=== PATIENT | female | born 1970 | race Caucasian/White ===

== ENCOUNTER 2023-11-28 13:53 | Observation (INO) | payer OTHER, SELFPAY ==
[2023-11-28] VITALS (8 sets, daily range): BP systolic 99–154; BP diastolic 47–71; PULSE 56–83; RESP 14–20; TEMP 36.5–37; O2SAT 93–97; BMI 31.1; BMI 30.6
--- NOTE | 2023-11-28 14:39 | PC.NURSE ---
MD Sung made aware of pt's hoarse voice, chest and throat tightness. At bedside to evaluate patient.
[2023-11-28] MEDS: Albuterol/Iprat 2.5/0.5MG 3 ML AMPUL.NEB INHALE (14:50)
[2023-11-28] MEDS: EPINEPHrine 1 MG/ML VIAL 0.3 MG IM (14:53)
[2023-11-28] MEDS: Famotidine/PF 20 MG/2 ML VIAL 40 MG IVPUSH (14:53)
[2023-11-28] MEDS: dexAMETHasone sod phosphate 10 MG/ML VIAL IVPUSH (14:53)
--- NOTE | 2023-11-28 15:10 | PC.NURSE ---
pt is alert and oriented, skin pwd, respirations even and unlabored, ls slightly wheezing on the lower bases with expirations, also slightly horse, sating well at 96% on room air, pt reports having an known egg allergy not sure if she ate something containing eggs,
--- NOTE | 2023-11-28 15:10 | ED_ITS ---
HPI - General Adult General Chief complaint: Allergic Reaction Stated complaint: ALLERGIC RXN Time Seen by Provider: 11/28/23 13:58 History of Present Illness ED Provider: Dr. Sung HPI narrative: 53 y/o F patient; PMH anaphylaxis allergic reaction; presents from [facility] with concern for anaphylaxis reaction to egg exposure. The patient states she felt her throat closing, her breathing becoming heavier, and she had NBNB vomiting x3. She states this is typical of her usual allergic reactions. She has never had to be intubated for anaphylaxis before. She received an epi-pen prior to arrival with some improvement. She also received IM Benadryl 50mg prior to arrival. She otherwise denies: fever or chills, chest pain, abdominal pain, syncope. Related Data Home Medications ?Medication ?Instructions ?Recorded ?Confirmed buspirone 30 mg tablet 30 mg PO BID 11/28/23 calcium carbonate 600 mg-vitamin 1 tab PO BID 11/28/23 D3 10 mcg (400 unit) tablet cholecalciferol (vitamin D3) 10 10 mcg PO BID 11/28/23 mcg (400 unit) tablet (Vitamin D3) cholecalciferol (vitamin D3) 10 20 mcg PO DAILY 11/28/23 mcg (400 unit) tablet (Vitamin D3) citalopram 40 mg tablet 40 mg PO DAILY 11/28/23 clonazepam 0.5 mg tablet 0.5 mg PO TID 11/28/23 clonidine HCl 0.1 mg tablet 0.1 mg PO TID 11/28/23 dicyclomine 10 mg capsule 10 mg PO TID 11/28/23 ibuprofen 600 mg tablet 600 mg PO TID 11/28/23 lamotrigine 200 mg tablet 200 mg PO DAILY 11/28/23 lamotrigine 25 mg tablet 50 mg PO BID 11/28/23 lurasidone 80 mg tablet 80 mg PO DAILY 11/28/23 oxycodone 15 mg tablet mg PO 11/28/23 quetiapine 50 mg tablet 50 mg PO BEDTIME 11/28/23 ramelteon 8 mg tablet (Rozerem) 8 mg PO DAILY 11/28/23 Allergies Allergy/AdvReac Type Severity Reaction Status Date / Time duloxetine [From Cymbalta] Allergy Rash Verified 11/28/23 14:38 egg Allergy Anaphylaxis Verified 11/28/23 14:38 haloperidol [From Haldol] Allergy Agitated Verified 11/28/23 14:38 Review of Systems 2 Review of Systems: Yes all other systems are reviewed and are negative [facility] Past Medical History Attestation statement: The following information was validated with the patient. Source: unable to obtain Social History Social History Advance Directives: No Advance Directives Information Provided: No Physical Exam ED Vital Signs: Vital Signs - 24 hr 11/28/23 14:36 11/28/23 14:50 11/28/23 14:53 Temperature 98.6 F Pulse Rate 62 62 58 Respiratory Rate 14 14 Blood Pressure 99/54 L 105/47 L Pulse Oximetry 96 Oxygen Delivery Method Room Air 11/28/23 15:56 Temperature 98.1 F Pulse Rate 69 Respiratory Rate 15 Blood Pressure 120/55 L Pulse Oximetry 97 Oxygen Delivery Method Room Air BMI result Body Mass Index 31.1 Patient is afebrile and hemodynamically stable. Const General: cooperative HENMT Other: Hoarse, raspy voice appreciated Head: Yes normal to inspection and Yes atraumatic Mouth: Normal oral and palatal mucosa present, lip normal and tongue normal Throat: Yes posterior oropharynx normal, Yes tonsils normal and Yes uvula midline Eyes General: appearance normal, both eyes and all related structures Pupils: Equal, round and reactive pupils present Neck Neck: Yes normal visual inspection, Yes full ROM, Yes supple and No tender Chest Chest palpation & inspection: normal inspection of the chest and normal palpation of entire chest wall Resp Other: Bibasilar rhonchi and wheezing present Effort & Inspection: normal respiratory effort, able to speak in complete sentences, no cough and no respiratory distress Cardio Rate: regular rate Rhythm: regular rhythm Peripheral pulses: Peripheral pulses 2+ throughout GI Inspection: Yes normal to inspection, No Abdominal wall edema and No distended Palpation (GI): Soft to palpation, not firm, nontender, no guarding and not rigid Auscultation: normal bowel sounds Back/Spine/Pelvis Back: No back tenderness Skin Other: No rash appreciated Neuro Cranial nerves: Yes Equal, round and reactive pupils present Course Course Course Narrative: Patient is afebrile and hemodynamically stable, SpO2 94%. Patient did have nausea/vomiting, throat discomfort, and shortness of breath prior to arrival consistent with anaphylaxis. She currently has low normal SpO2, a hoarse rasping voice, and wheezing/rhonchi on exam. Given these findings I will provide a second dose of epi-pen. The patient states her last anaphylaxis required three epi-pen doses before resolution. I will also treat with decadron 10mg IV, famotidine 40mg IV, and DuoNeb. Patient re-evaluated multiple times after this management plan with improvement in symptoms. SpO2 now 96 - 98%. Patient reports improvement in shortness of breath/throat tightness as well as nausea. No further vomiting in the emergency department. Patient will require admission to the hospital for observation after requiring two epi-pens for anaphylaxis. Provided afternoon doses of clonazepam, gabapentin, and oxycontin at patient's request. Verified in patient's record that these medications are prescribed to her. I spoke with the hospitalist who reports labs are require prior to admission for anaphylaxis. Ordered basic labs. Condition: Stable Medications Administered Discontinued Medications Generic Name Dose Route Start Last Admin Trade Name Freq PRN Reason Stop Dose Admin Albuterol/Ipratropium 3 ml 11/28/23 14:44 11/28/23 14:50 Albuterol/Iprat 2.5/0.5mg 3 Ml Ampul.Neb INHALE 11/28/23 14:45 3 ml ONCE ONE Administration Clonazepam 0.5 mg 11/28/23 15:37 11/28/23 16:12 Clonazepam 0.5 Mg Tablet PO 11/28/23 15:38 0.5 mg ONCE ONE Administration Dexamethasone Sodium Phosphate 10 mg 11/28/23 14:42 11/28/23 14:53 Dexamethasone Sod Phosphate 10 Mg/Ml Vial IVPUSH 11/28/23 14:43 10 mg ONCE ONE Administration Epinephrine 0.3 mg 11/28/23 14:42 11/28/23 14:53 Epinephrine 1 Mg/Ml Vial IM 11/28/23 14:43 0.3 mg STAT STA Administration Famotidine 40 mg 11/28/23 14:42 11/28/23 14:53 Famotidine/Pf 20 Mg/2 Ml Vial IVPUSH 11/28/23 14:43 40 mg ONCE ONE Administration Gabapentin 600 mg 11/28/23 15:37 11/28/23 16:12 Gabapentin 600 Mg Tablet PO 11/28/23 15:38 600 mg ONCE ONE Administration Oxycodone HCl 15 mg 11/28/23 15:37 11/28/23 16:12 Oxycodone Hcl Er 10 Mg Tab.Er.12h PO 11/28/23 15:38 15 mg ONCE ONE Administration Medical Decision Making Lab Data 11/28/23 16:02 11/28/23 16:02 Labs: Lab Results 11/28/23 Range/Units 16:02 WBC 9.6 (4.8-10.8) X10*3/uL RBC 4.49 (4.20-5.50) X10*6/uL Hgb 13.6 (12.0-16.0) g/dl Hct 40.9 (37.0-47.0) % MCV 91.1 (80.0-98.0) fL MCH 30.3 (27.0-33.0) pg MCHC 33.3 (31.0-35.0) g/dl RDW 12.7 (11.0-16.0) % Plt Count 199 (160-400) X10*3/uL MPV 9.9 (9.4-12.3) fL Immature Gran % (Auto) 0.3 (0.0-0.4) % Neut % (Auto) 61.4 (45-73) % Lymph % (Auto) 31.9 (20-40) % [place] % (Auto) 3.5 (2-11) % Eos % (Auto) 2.3 (0-4) % Baso % (Auto) 0.6 (0-2) % Lymph # (Auto) 3.1 (1.2-4.9) X10*3/uL [place] # (Auto) 0.3 (0.1-1.2) X10*3/uL Eos # (Auto) 0.2 (0.0-0.4) X10*3/uL Baso # (Auto) 0.1 (0.0-0.2) X10*3/uL Abs Immat Gran (auto) 0.03 (0.00-0.03) X10*3/uL Absolute Neuts (auto) 5.9 (2.0-8.3) x10*3/uL Absolute Nucleated RBC 0.000 (0.0-0.012) X10*3/uL Nucleated RBC % (auto) 0.0 (0.0-0.2) /100WBC Sodium 140 (135-145) mmol/L Potassium 4.3 (3.3-5.1) mmol/L Chloride 108 (96-108) mmol/L Carbon Dioxide 23 (22-29) mmol/L Anion Gap 13 (12-20) BUN 14 (9-16) mg/dL Creatinine 0.96 (0.5-1.4) mg/dL Estim Creat Clear Calc 59.4 Estimated GFR > 60 Random Glucose 130 H (60-115) mg/dL Calcium 9.8 (8.4-10.2) mg/dL Critical Care Time Critical Care Time Critical Care Time: Yes Total Critical Care Time: 35 Attestation: Total critical care time: Approximately?35minutes Due to a high probability of clinically significant, life threatening deterioration, the patient required my highest level of preparedness to intervene emergently and I personally spent this critical care time directly and personally managing the patient. This critical care time included obtaining a history; examining the patient; pulse oximetry; arranging urgent treatment with development of a management plan; evaluation of patient's response to treatment; frequent reassessment; and, discussions with other providers. This critical care time was performed to assess and manage the high probability of imminent, life-threatening deterioration that could result in multi-organ failure. It was exclusive of separately billable procedures and treating other patients? Discharge Plan Discharge Clinical Impression: Anaphylaxis Patient Disposition: Admitted As Inpatient Print Language: Ghanaian
--- NOTE | 2023-11-28 16:05 | PC.NURSE ---
pt is alert and oriented, pt is screaming at this rn to get her pain medications for her, then is insisting that the oxycodne is not the medications that she is supposed to take, that ioana salas made a mistake, insisted that the doctor come to the bedside, dr erickson arrived to the bed-speaking with the pt in regards to this. pt agreed that she will take this mediation for now and that Dr erickson will try to get records from [facility]. pt is sinus on the monitor pt is changed over in [facility] attire and sitter at bedside
[2023-11-28 16:07] LABS: MANUAL DIFF FLAG NO
[2023-11-28 16:09] LABS: Basophils Absolute Auto 0.1 X10*3/uL (0.0-0.2); Basophils Percent Auto 0.6 % (0-2); Eosinophils Absolute Auto 0.2 X10*3/uL (0.0-0.4); Eosinophils Percent Auto 2.3 % (0-4); Hematocrit 40.9 % (37.0-47.0); Hemoglobin 13.6 g/dl (12.0-16.0); Imm Gran Abs Auto 0.03 X10*3/uL (0.00-0.03); Imm Gran Pct Auto 0.3 % (0.0-0.4); Lymphocytes Absolute Auto 3.1 X10*3/uL (1.2-4.9); Lymphocytes Percent Auto 31.9 % (20-40); Mean Corpuscular HGB Conc 33.3 g/dl (31.0-35.0); Mean Corpuscular Hemoglobin 30.3 pg (27.0-33.0); Mean Corpuscular Volume 91.1 fL (80.0-98.0); Mean Platelet Volume 9.9 fL (9.4-12.3); Monocytes Absolute Auto 0.3 X10*3/uL (0.1-1.2); Monocytes Percent Auto 3.5 % (2-11); Neutrophils Absolute Auto 5.9 x10*3/uL (2.0-8.3); Neutrophils Percent Auto 61.4 % (45-73); Platelet Count 199 X10*3/uL (160-400); Red Blood Count 4.49 X10*6/uL (4.20-5.50); Red Cell Distribution Width 12.7 % (11.0-16.0); White Blood Count 9.6 X10*3/uL (4.8-10.8)
[2023-11-28] MEDS: oxyCODONE HCl ER 10 MG TAB.ER.12H 15 MG PO (16:12)
[2023-11-28] MEDS: Gabapentin 600 MG TABLET PO (16:12)
[2023-11-28] MEDS: clonazePAM 0.5 MG TABLET PO ×2 (16:12→21:03)
[2023-11-28 16:22] LABS: Anion Gap 13 (12-20); Blood Urea Nitrogen 14 mg/dL (9-16); Calcium 9.8 mg/dL (8.4-10.2); Carbon Dioxide 23 mmol/L (22-29); Chloride 108 mmol/L (96-108); Creatinine Clr Calc Pharmacy 59.4; Estimated Glomerular Filt Rate > 60; Glucose Random 130 mg/dL (60-115); Potassium 4.3 mmol/L (3.3-5.1); Sodium 140 mmol/L (135-145)
--- NOTE | 2023-11-28 17:13 | P.HPHOSP_ITS ---
History of Present Illness Date of Service: 11/28/23 Attending physician on admission: Sal [facility] Chief Complaint: Anaphylaxis Pt is a 53-year-old female with a PMH significant for?asthma, chronic pain syndrome on chronic oxycodone, and depression who presents to the ED from [facility] with?concern for anaphylaxis. Pt reports ate fish for lunch and approximally 20 minutes later began to feel her throat closing, tongue swelling, face becoming puffy, and was itchy. Stomach also began to hurt and she threw up 3 times. Patient states she has felt these symptoms many times in the past whenever she eats eggs, and believes the food she ate either contained eggs or was cross contaminated. Received 1 EpiPen dose at the facility and then IM Benadryl by EMS. Received an additional epinephrine dose in the ED. currently patient denies any nausea, vomiting, abdominal pain. Some pleuritic chest pain with deep inspiration, but no difficulty breathing or SOB. Reports occasional palpitations, but no chest pain or pressure. No difficulty swallowing or pruritus. Patient reports initially presented to [facility] ED for voluntary inpatient psychiatric admission for increasing depression and SI. However, when found out she was going to be going to [facility] she denied admission there and was sectioned. Reports she was set to be discharged from the facility on Tuesday instead of today due to the holiday. Currently adamantly denies any SI and wishes to be discharged home from the hospital here rather than going back to [facility]. In the ED pt was soft BP as low as 99/54, otherwise stable and WNL. Labs were grossly unremarkable baseline for patient. No leukocytosis. Stable H& H. No significant electrolyte abnormalities. Renal function baseline. Pt was treated with DuoNebs, famotidine, dexamethasone 10 mg IV, and epinephrine. Pt will be admitted to the hospital under observation for evaluation of likely anaphylactic reaction. Review of Systems 2 Review of Systems: Yes all other systems are reviewed and are negative [facility] Medical History (Updated 11/28/23 @ 18:08 by ECTOR Astudillo) Asthma MDD (major depressive disorder) Chronic pain Social History Comment: 1:1 sitter Patient Tobacco Use Status: Current everyday Tobacco user Tobacco use type: Cigarette Cigarettes Per Day: 7 Smoked in Last 30 Days: Yes Patient Interested in Nicotine Replacement: No Patient Given Instructions on How to Stop Smoking: No Second Hand Smoke Exposure: No Use of substances other than those prescribed or required for medical reasons: No Currently Displaying Signs/Symptoms of Drug Intoxication Withdrawal: No Advance Directives: No Advance Directives Information Provided: No Nutrition Risks: No Nutritional Risk Meds Allergies Allergy/AdvReac Type Severity Reaction Status Date / Time duloxetine [From Cymbalta] Allergy Rash Verified 11/28/23 14:38 egg Allergy Anaphylaxis Verified 11/28/23 14:38 haloperidol [From Haldol] Allergy Agitated Verified 11/28/23 14:38 Home Medications ?Medication ?Instructions ?Recorded ?Confirmed ?Last Taken ?Type acetaminophen 325 mg tablet 650 mg PO Q4H PRN pain/fever 11/28/23 11/28/23 Unknown History aluminum-mag hydroxide-simethicone 30 ml PO QID PRN Heartburn 11/28/23 11/28/23 Unknown History 200 mg-200 mg-20 mg/5 mL oral susp buspirone 30 mg tablet 30 mg PO BID 11/28/23 11/28/23 Unknown History calcium carbonate 500 mg PO Q4H PRN Heartburn 11/28/23 11/28/23 Unknown History citalopram 40 mg tablet 40 mg PO DAILY 11/28/23 11/28/23 Unknown History clonazepam 0.5 mg tablet 0.5 mg PO TID 11/28/23 11/28/23 Unknown History clonidine HCl 0.1 mg tablet 0.3 mg PO BID 11/28/23 11/28/23 Unknown History docusate sodium 100 mg capsule 100 mg PO BID PRN Constipation 11/28/23 11/28/23 Unknown History gabapentin 600 mg tablet 1,200 mg PO BID 11/28/23 11/28/23 Unknown History gabapentin 600 mg tablet 600 mg PO DAILY@1400 11/28/23 11/28/23 Unknown History lamotrigine 200 mg tablet 200 mg PO DAILY 11/28/23 11/28/23 Unknown History lamotrigine 25 mg tablet 50 mg PO DAILY 11/28/23 11/28/23 Unknown History lurasidone 80 mg tablet 80 mg PO DAILY@1700 11/28/23 11/28/23 Unknown History melatonin 3 mg tablet 3 mg PO BEDTIME PRN Sleep 11/28/23 11/28/23 Unknown History montelukast 10 mg tablet 10 mg PO DAILY 11/28/23 11/28/23 Unknown History oxycodone 15 mg tablet 15 mg PO DAILY@1400 11/28/23 11/28/23 Unknown History oxycodone 30 mg tablet 30 mg PO BID 11/28/23 11/28/23 Unknown History quetiapine 50 mg tablet 50 mg PO BEDTIME 11/28/23 11/28/23 Unknown History quetiapine 50 mg tablet 50 mg PO TID PRN Agitation 11/28/23 11/28/23 Unknown History ramelteon 8 mg tablet (Rozerem) 8 mg PO BEDTIME 11/28/23 11/28/23 Unknown History Physical Exam 2 Vital Signs and Narrative: Vital Signs: Last Vital Signs Temp 98.1 F 11/28/23 15:56 Pulse 69 11/28/23 15:56 Resp 15 11/28/23 15:56 BP 120/55 L 11/28/23 15:56 Pulse Ox 97 11/28/23 15:56 O2 Del Method Room Air 11/28/23 15:56 BMI result Body Mass Index 31.1 General: AOx3, no acute distress Resp: CTA bilaterally. Speaking in complete sentences. No respiratory distress. CVS: S1, S2, RRR GI: +BS, NT, no distention Skin: Warm, dry Neuro: Cranial nerves II-XII grossly intact bilaterally. Motor grossly intact bilaterally Extremities: No edema Psych: Emotionally labile Results Labs 11/28/23 16:02 11/28/23 16:02 Labs: Laboratory Results - last 24 hr 11/28/23 16:02 MCV 91.1 MCH 30.3 MCHC 33.3 RDW 12.7 Plt Count 199 MPV 9.9 Immature Gran % (Auto) 0.3 Neut % (Auto) 61.4 Lymph % (Auto) 31.9 [place] % (Auto) 3.5 Eos % (Auto) 2.3 Baso % (Auto) 0.6 Lymph # (Auto) 3.1 [place] # (Auto) 0.3 Eos # (Auto) 0.2 Baso # (Auto) 0.1 Abs Immat Gran (auto) 0.03 Absolute Neuts (auto) 5.9 Absolute Nucleated RBC 0.000 Nucleated RBC % (auto) 0.0 Anion Gap 13 Estim Creat Clear Calc 59.4 Estimated GFR > 60 Random Glucose 130 H Calcium 9.8 Assessment and Plan (1) Anaphylaxis: Status: Acute Plan Pt is a 53-year-old female with a PMH significant for?asthma, chronic pain syndrome on chronic oxycodone, and depression who presents to the ED from [facility] with?concern for anaphylaxis. Pt will be admitted to the hospital under observation for evaluation of likely anaphylactic reaction. Anaphylaxis Pt with throat tightness, swollen tongue, pruritus, puffy face, stomach upset, N/V Patient with known egg allergy w/anaphylaxis Likely ate food containing/contaminated with eggs at inpatient psych facility Given epinephrine x2 doses, Benadryl IV, DuoNebs, famotidine, dexamethasone Currently asymptomatic Monitor respiratory status Duonebs prn MDD with SI Section 12 at [facility] Has been inpatient at [facility], reports was set to be discharged on Tuesday Currently denies SI One-to-one sitter Care team once meidcally cleared Hold clonidine due to soft BP Continue all other home mood stabilizers Asthma Not in acute exacerbation Continue home inhalers Duonebs prn Chronic pain Continue home oxycodone Full Code Attending:?Dr. Holliday DVT Prophylaxis: Pt ambulatory Patient will be admitted to the hospital under observation for evaluation of anaphylactic response to egg allergy. Given patient needed multiple rounds of epinephrine for symptom resolution, patient will require overnight hospital stay for observation. Quality Stroke Does the patient have a stroke diagnosis?: No VTE Prior VTE?: No VTE Risk Level:: Medical - moderate - high VTE Device Contraindication: Treatment Not Indicated VTE Drug Contraindication: Treatment Not Indicated
--- NOTE | 2023-11-28 17:35 | PHA.MEDREC ---
Pharmacy Consult ? Medication Reconciliation Pharmacy has completed the medication reconciliation. Patient with list from [facility]
--- NOTE | 2023-11-28 19:23 | PC.NURSE ---
pt eating dinner at this time, report written for admission, awaiting transport. sitter at bedside. calm and cooperative with care at this time
[2023-11-28] MEDS: Lurasidone HCl 80 MG TABLET PO (19:44)
[2023-11-28] MEDS: busPIRone HCl 10 MG TABLET 30 MG PO (21:03)
[2023-11-28] MEDS: QUEtiapine Fumarate 50 MG TABLET PO (21:03)
[2023-11-28] MEDS: Gabapentin 600 MG TABLET 1200 MG PO (21:03)
[2023-11-28] MEDS: 0.9 % Sodium Chloride Flush 3 ML SYRINGE IVFLUSH (21:04)
[2023-11-28] MEDS: oxyCODONE HCl Immed Release 15 MG TABLET 30 MG PO (21:04)
[2023-11-28] MEDS: Acetaminophen 325 MG TABLET 650 MG PO (21:16)
[2023-11-29] MEDS: Acetaminophen 325 MG TABLET 650 MG PO (02:58)
[2023-11-29] MEDS: QUEtiapine Fumarate 50 MG TABLET PO (02:59)
[2023-11-29 03:32] VITALS: BP 148/75; PULSE 52; RESP 18; TEMP 36.2; O2SAT 96
[2023-11-29 04:02] VITALS: RESP 16
[2023-11-29 04:03] VITALS: RESP 16
[2023-11-29 07:18] VITALS: BP 135/71; PULSE 52; RESP 18; TEMP 36.5; O2SAT 96
[2023-11-29] MEDS: 0.9 % Sodium Chloride Flush 3 ML SYRINGE IVFLUSH (07:57)
[2023-11-29] MEDS: busPIRone HCl 10 MG TABLET 30 MG PO (07:57)
[2023-11-29] MEDS: oxyCODONE HCl Immed Release 15 MG TABLET 30 MG PO (07:58)
[2023-11-29] MEDS: Gabapentin 600 MG TABLET 1200 MG PO (07:58)
[2023-11-29] MEDS: lamoTRIgine 100 MG TABLET 200 MG PO (07:58)
[2023-11-29] MEDS: clonazePAM 0.5 MG TABLET PO (07:58)
[2023-11-29] MEDS: Montelukast Sodium 10 MG TABLET PO (07:58)
[2023-11-29] MEDS: lamoTRIgine 25 MG TABLET 50 MG PO (07:59)
[2023-11-29] MEDS: Escitalopram Oxalate 20 MG TABLET PO (07:59)
--- NOTE | 2023-11-29 10:59 | PM.DS ---
DS: Providers Provider Date of Service: 11/29/23 Date of admission: 11/28/23 17:53 Date of discharge: 11/29/23 Primary care physician: Alexander Garrido MD Consults: 11/28/23 17:55 Consult for Sitter Routine Reason for consultation: From [facility] for SI 11/29/23 08:28 Consult to Care Team Routine Comment: Reason for consultation: Medically ready for discharge DS: Diagnosis Discharge Diagnosis (1) Anaphylaxis: Status: Acute DS: Summary Hospital Course Hospital Course: Pt is a 53-year-old female with a PMH significant for?asthma, chronic pain syndrome on chronic oxycodone, and depression who presents to the ED from [facility] with?concern for anaphylaxis. Pt reports ate fish for lunch and approximally 20 minutes later began to feel her throat closing, tongue swelling, face becoming puffy, and was itchy. Stomach also began to hurt and she threw up 3 times. Patient states she has felt these symptoms many times in the past whenever she eats eggs, and believes the food she ate either contained eggs or was cross contaminated. Received 1 EpiPen dose at the facility and then IM Benadryl by EMS. Received an additional epinephrine dose in the ED. currently patient denies any nausea, vomiting, abdominal pain. Some pleuritic chest pain with deep inspiration, but no difficulty breathing or SOB. Reports occasional palpitations, but no chest pain or pressure. No difficulty swallowing or pruritus. Patient reports initially presented to [facility] ED for voluntary inpatient psychiatric admission for increasing depression and SI. However, when found out she was going to be going to [facility] she denied admission there and was sectioned. Reports she was set to be discharged from the facility on Tuesday instead of today due to the holiday. Currently adamantly denies any SI and wishes to be discharged home from the hospital here rather than going back to [facility]. In the ED pt was soft BP as low as 99/54, otherwise stable and WNL. Labs were grossly unremarkable baseline for patient. No leukocytosis. Stable H& H. No significant electrolyte abnormalities. Renal function baseline. Pt was treated with DuoNebs, famotidine, dexamethasone 10 mg IV, and epinephrine. Pt will be admitted to the hospital under observation for evaluation of likely anaphylactic reaction. hosptial course: The patient was at a psychiatric facility for depression management and was scheduled for discharge within a day. She developed an anaphylactic reaction, as noted above, and required two doses of Epipen in the ED. She has been stable since. She has a history of a severe egg allergy since childhood and usually avoids eating out. She believes the facility's diet was not egg-free, leading to her reaction, which has now resolved. She has Epipens at home. Regarding her depression, she denies suicidal ideation (SI), and the care team has cleared her for discharge with her supportive . Time Attestation Discharge Coordination Time (in mins): 35 Quality: Safe Use of Opioids Does Pt have an Active Cancer Diagnosis on the Problem List?: No Quality: Stroke Does the patient have a stroke diagnosis?: No Physical Exam Vital Signs: Vital Signs: Last Vital Signs Temp 97.7 F 11/29/23 07:18 Pulse 52 11/29/23 07:18 Resp 18 11/29/23 07:18 BP 135/71 11/29/23 07:18 Pulse Ox 96 11/29/23 07:18 O2 Del Method Room Air 11/29/23 07:18 BMI result Body Mass Index 30.6 Const: Other: General: AO X 3, no acute distress Resp: CTA bilateral CVS: S1,S2,RRR GI: +BS, NT, no distention Skin: No rash Neuro: motor grossly intact Psych: appropriate affect DS: Data Data Completed and Pending Labs on day of discharge: Laboratory Results - last 24 hr 11/28/23 16:02 WBC 9.6 RBC 4.49 Hgb 13.6 Hct 40.9 MCV 91.1 MCH 30.3 MCHC 33.3 RDW 12.7 Plt Count 199 MPV 9.9 Immature Gran % (Auto) 0.3 Neut % (Auto) 61.4 Lymph % (Auto) 31.9 [place] % (Auto) 3.5 Eos % (Auto) 2.3 Baso % (Auto) 0.6 Lymph # (Auto) 3.1 [place] # (Auto) 0.3 Eos # (Auto) 0.2 Baso # (Auto) 0.1 Abs Immat Gran (auto) 0.03 Absolute Neuts (auto) 5.9 Absolute Nucleated RBC 0.000 Nucleated RBC % (auto) 0.0 Sodium 140 Potassium 4.3 Chloride 108 Carbon Dioxide 23 Anion Gap 13 BUN 14 Creatinine 0.96 Estim Creat Clear Calc 59.4 Estimated GFR > 60 Random Glucose 130 H Calcium 9.8 Discharge Plan Discharge Anticipated Discharge Date/Time: 11/29/23 10:54 Patient Disposition: Home, Self-Care Discharge Diagnosis: anaphylaxis reaction due to egg Referrals: Alexander Garrido MD [Primary Care Provider] - 1 Week Discharge Medications: Continued clonidine HCl 0.1 mg tablet 0.3 mg PO BID lamotrigine 200 mg tablet 200 mg PO DAILY citalopram 40 mg tablet 40 mg PO DAILY clonazepam 0.5 mg tablet 0.5 mg PO TID lamotrigine 25 mg tablet 50 mg PO DAILY oxycodone 15 mg tablet 15 mg PO DAILY@1400 buspirone 30 mg tablet 30 mg PO BID ramelteon [Rozerem] 8 mg tablet 8 mg PO BEDTIME quetiapine 50 mg tablet 50 mg PO TID PRN (Reason: Agitation) lurasidone 80 mg tablet 80 mg PO DAILY@1700 acetaminophen 325 mg tablet 650 mg PO Q4H PRN (Reason: pain/fever) gabapentin 600 mg tablet 1,200 mg PO BID gabapentin 600 mg Tablet 600 mg PO DAILY@1400 melatonin 3 mg Tablet 3 mg PO BEDTIME PRN (Reason: Sleep) docusate sodium 100 mg Capsule 100 mg PO BID PRN (Reason: Constipation) montelukast 10 mg Tablet 10 mg PO DAILY calcium carbonate [Tums 500] 500 mg calcium (1,250 mg) Tablet,Chewable 500 mg PO Q4H PRN (Reason: Heartburn) alum-mag hydroxide-simeth [Mylanta] 200-200-20 mg/5 mL Suspension 30 ml PO QID PRN (Reason: Heartburn) Rx Instructions: administer between meals and at bedtime oxycodone 30 mg Tablet 30 mg PO BID quetiapine 50 mg tablet 50 mg PO BEDTIME Discharge Orders: Discharge Order (Routine); Ordered 11/29/23 Ordered By: Sal Holliday Diet: Advance to usual diet Activity on Discharge: As tolerated Stand Alone Forms: Patient Portal Discharge page Print Language: Romansh Care Plan Goals: recovery from anaphylaxis reaction from egg Health Concerns: anaphylaxis reaction depression Plan of Treatment: take all your medications I prefer. Use EpiPen as needed for anaphylactic reaction avoid potential food that may contain egg products Assessment: see above
--- NOTE | 2023-11-29 11:21 | MHC.CM.PN ---
[facility]O DELIVERED PT LIVES ALONE AND IS ACTIVE WITH 2 AGENCIES OP (PACT AND ICMP) FOR COMMUNITY CARE MANAGEMENT. PT IS INDEPENDENT WITH MOBILITY. PT DECLINES COMPLETING A HCP AT THIS TIME. PCP DR. HUANG DP: PT HAS BEEN MEDICALLY CLEARED AND CLEARED BY CARE TEAM FOR DC HOME. PT WILL NEED A LYFT RIDE, SCHEDULED FOR 1 PM. RN AWARE.
[2023-11-29] MEDS: oxyCODONE HCl Immed Release 15 MG TABLET PO (12:44)
[2023-11-29] MEDS: Gabapentin 600 MG TABLET PO (12:44)
== END 2023-11-29 13:38 | disposition home or self-care (01) ==
LOC: HO.ED 15:21 → HO.EDOVER 18:01 → HO.S3 18:48
PROVIDERS: Admitting Provider Student in an Organized Health Care Education/Training Program; Emergency Provider Emergency Medicine; PCP Family Medicine; Visit Provider Internal Medicine
DX: T78.08XA Anaphylactic reaction due to eggs, initial encounter (principal); Y92.9 Unspecified place or not applicable; R11.10 Vomiting, unspecified; J45.909 Unspecified asthma, uncomplicated
CPT/HCPCS: 36415; 80048; 85025; 94640; 96372; 96374; 96375; 99221; 99285; J0171; J1100; S9485

== ENCOUNTER → 2023-11-28 17:53 | Outpatient (BNV) | payer OTHER, SELFPAY | PROVIDERS: Admitting Provider Student in an Organized Health Care Education/Training Program; Emergency Provider Emergency Medicine; PCP Family Medicine; Visit Provider Student in an Organized Health Care Education/Training Program | DX: T78.2XXA Anaphylactic shock, unspecified, initial encounter (principal) | CPT/HCPCS: 99222; 99239 ==